=== PATIENT | female | born 1985 | race Caucasian/White ===

== ENCOUNTER 2024-01-14 18:34 | Emergency (ER) | payer OTHER ==
[2024-01-14] MEDS: Morphine 10 MG/ML SDV IM ONE ×2 (19:28→19:37)
[2024-01-14] MEDS: Ondansetron 4 MG Tab.DIS PO ONE (19:33)
[2024-01-14] MEDS: Morphine 4 MG/ML Syringe IM ONE (19:33)
[2024-01-14] MEDS: Amoxicillin/Clavulanate K 875-125 MG Tab PO ONE (19:36)
== END 2024-01-14 20:29 | disposition home or self-care (01) ==
LOC: MW.ED 18:34
DX: K02.9 Dental caries, unspecified (principal); F17.210 Nicotine dependence, cigarettes, uncomplicated; Z88.2 Allergy status to sulfonamides
CPT/HCPCS: 96372; 99283; A9270; J2270

== ENCOUNTER 2024-07-24 21:13 | Emergency (ER) | payer OTHER ==
[2024-07-24 22:47] LABS: BASOPHILS ABSOLUTE AUTO 0.04 K/uL (0.00-0.20); BASOPHILS PERCENT AUTO 0.4 % (0.0-1.0); EOSINOPHILS ABSOLUTE AUTO 0.13 K/uL (0.00-0.45); EOSINOPHILS PERCENT AUTO 1.5 % (0.0-6.0); HEMOGLOBIN 12.3 g/dL (12.0-16.0); IMMATURE GRAN ABSOLUTE AUTO 0.03 K/uL (0.00-0.05); IMMATURE GRAN PERCENT AUTO 0.3 % (0.0-0.4); LYMPHOCYTES ABSOLUTE AUTO 1.24 K/uL (1.00-4.80); LYMPHOCYTES PERCENT AUTO 13.9 % (24.0-44.0); MEAN CORPUSCULAR HEMOGLOBIN 28.1 pg (28.0-32.0); MEAN CORPUSCULAR HGB CONC 34.2 g/dL (32.0-36.0); MEAN CORPUSCULAR VOLUME 82.2 fL (83.0-99.0); MEAN PLATELET VOLUME 9.4 fL (9.4-12.3); MONOCYTES ABSOLUTE AUTO 0.67 K/uL (0.00-0.80); MONOCYTES PERCENT AUTO 7.5 % (0.0-8.0); NEUTROPHILS ABSOLUTE AUTO 6.79 K/uL (1.80-7.70); NEUTROPHILS PERCENT AUTO 76.4 % (41.0-71.0); PLATELET COUNT,PLT 246 K/uL (150-400); RED BLOOD CELL COUNT 4.38 M/uL (4.10-5.30)
[2024-07-24] MEDS: Ibuprofen 600 MG Tab PO ONE (23:06)
[2024-07-24] MEDS: Acetaminophen 500 MG Tab PO ONE (23:06)
[2024-07-24 23:09] LABS: A/G RATIO 1.1 (0.9-1.6); ALBUMIN 3.8 g/dL (3.4-5.0); BILIRUBIN TOTAL 0.3 mg/dL (0.2-1.0); CALCIUM 8.7 mg/dL (8.5-10.1); CARBON DIOXIDE,CO2 26.3 mmol/L (21.0-32.0); CREATININE 1.1 mg/dL (0.6-1.0); EST CRCL DRUG DOSING (CG) 54.84 mL/min; POTASSIUM,K 3.7 mmol/L (3.5-5.1); PROTEIN TOTAL,TP 7.2 g/dL (6.4-8.2)
[2024-07-24 23:30] LABS: HCG QUALITATIVE,SERUM NEGATIVE (NEG)
== END 2024-07-25 00:28 | disposition home or self-care (01) ==
LOC: MW.ED 21:13
DX: J02.9 Acute pharyngitis, unspecified (principal); R21 Rash and other nonspecific skin eruption; R74.01 Elevation of levels of liver transaminase levels; Z88.0 Allergy status to penicillin; Z88.2 Allergy status to sulfonamides
CPT/HCPCS: 36415; 80053; 84703; 85025; 86308; 87428; 87651; 96374; 99283; A9270; J1100

== ENCOUNTER 2024-09-12 21:27 | Emergency (ER) | payer OTHER ==
[2024-09-12] MEDS: Acetaminophen/HYDROcodone 325-5 MG Tab PO ONE (21:52)
[2024-09-12] MEDS: predniSONE 20 MG Tab PO ONE (21:52)
[2024-09-12] MEDS: Clindamycin HCl 150 MG Cap PO ONE (21:54)
[2024-09-12] MEDS: Ketorolac 60 MG/2 ML SDV IM ONE (21:54)
== END 2024-09-12 22:05 | disposition home or self-care (01) ==
LOC: MW.ED 21:27
DX: K04.7 Periapical abscess without sinus (principal); F17.210 Nicotine dependence, cigarettes, uncomplicated; Z88.0 Allergy status to penicillin; Z88.2 Allergy status to sulfonamides
CPT/HCPCS: 96372; 99282; A9270; J1885

== ENCOUNTER 2024-10-10 14:15 | Emergency (ER) | payer OTHER | END 2024-10-10 18:52 | disposition left against medical advice (07) | LOC: MW.ED 14:15 | DX: Z53.21 Procedure and treatment not carried out due to patient leaving prior to being seen by health care provider (principal) ==